=== PATIENT | female | born 1990 | race Caucasian/White ===

== ENCOUNTER 2016-10-30 11:22 | Emergency (ER) | payer OTHER ==
[~2016-10-30] VITALS: Ht 170.2 cm; Wt 102.9 kg
[~2016-10-30 11:22] MED LIST: SERTRALINE HCL50 MG PO
[2016-10-30 12:31] LABS: ADD MIUA? YES; BILIRUBIN NEGATIVE; BLOOD SMALL; COLOR YELLOW ((YELLOW)); GLUCOSE (STRIP) NEGATIVE; KETONES NEGATIVE; LEUKOCYTES NEGATIVE; NITRITE NEGATIVE; PROTEIN (STRIP) 30; SPECIFIC GRAVITY 1.028 (1.000-1.030); UROBILINOGEN 0.2 MG/DL (0.2-1.0)
[2016-10-30 12:36] LABS: BASOPHIL COUNT 0.1 K/uL (0-0.1); EOSINOPHIL (%) 0.8 % (0-5); EOSINOPHIL COUNT 0.1 K/uL (0-0.3); HEMATOCRIT 40.2 % (36.0-46.0); IMMATURE GRANULOCYTE (%) 0.3 % (0.0-0.7); INSTRUMENT ABS NEUTROPHIL CT 6.2 K/uL; LYMPHOCYTE COUNT 3.6 K/uL (1.0-2.8); MCH 28.6 PG (29.0-34.0); MCHC 32.3 G/DL (30.0-36.0); MCV 88.5 FL (83-99); MEAN PLAT.VOLUME 10.1 uM^3 (9.5-12.4); MONOCYTE (%) 5.7 % (3-12); MONOCYTE COUNT 0.6 K/uL (0-0.8); NEUTROPHIL (%) 58.4 % (45-76); NEUTROPHIL COUNT 6.2 K/uL (1.8-6.4); PLATELET COUNT 332 K/uL (156-360); RBC DIS.WIDTH-CV 12.9 % (11.8-14.6); RBC DIS.WIDTH-SD 41.9 % (39-53); RED BLOOD COUNT 4.54 M/uL (3.80-5.20); WHITE BLOOD COUNT 10.6 K/uL (4.1-10.2)
[2016-10-30 12:36] LABS: BACTERIA RARE /HPF; EPITHELIAL CELLS RARE /HPF; MUCUS 1+ /LPF; RED BLOOD CELLS 0-5 /HPF (0-5); WHITE BLOOD CELLS 0-5 /HPF (0-5)
[2016-10-30 12:49] LABS: CHLORIDE 107 mEq/L (99-109); POTASSIUM 3.9 mEq/L (3.7-5.4); SODIUM 139 mEq/L (136-147)
[2016-10-30 12:51] LABS: GLUCOSE 74 mg/dL (70-99)
[2016-10-30 12:53] LABS: ANION GAP 9 MEQ/L (2-14); TOTAL BILIRUBIN 0.5 mg/dL (0.0-1.0)
[2016-10-30 12:55] LABS: ALKALINE PHOSPHATASE 76 IU/L (3-129); GFR ESTIMATE (CALCULATED) > 59 mL/min/
[2016-10-30 12:56] LABS: UREA NITROGEN (BUN) 13 mg/dL (9-23)
[2016-10-30 12:58] LABS: LIPASE 16 U/L (1.0-51.0)
[2016-10-30 13:06] LABS: QUANTITATIVE HCG < 4.0 MIU/ML
[2016-10-30] MEDS ORDERED: NEXIUM40 MG PO (13:28)
[2016-10-30 13:36] VITALS: BP 148/69
== END 2016-10-30 13:46 | disposition home or self-care (01) ==
LOC: EME 11:22
PROVIDERS: Nurse Practitioner Family
DX: K92.1 Melena (principal); R31.9 Hematuria, unspecified
CPT/HCPCS: 80053; 81003; 83690; 84702; 85025; 99281; 99284

== ENCOUNTER 2017-03-18 20:02 | Emergency (ER) | payer OTHER ==
[~2017-03-18] VITALS: Ht 170.2 cm; Wt 103.1 kg
[~2017-03-18 20:02] MED LIST changes: +NEXIUM40 MG PO
[2017-03-18 20:38] LABS: HEMATOCRIT 36.5 % (36.0-46.0); MCH 30.1 PG (29.0-34.0); MCHC 34.2 G/DL (30.0-36.0); MEAN PLAT.VOLUME 10.4 uM^3 (9.5-12.4); PLATELET COUNT 330 K/uL (156-360); RBC DIS.WIDTH-CV 12.7 % (11.8-14.6); RBC DIS.WIDTH-SD 40.9 % (39-53); RED BLOOD COUNT 4.15 M/uL (3.80-5.20); WHITE BLOOD COUNT 11.1 K/uL (4.1-10.2)
[2017-03-18 21:16] LABS: ADD MIUA? YES; BILIRUBIN NEGATIVE; BLOOD LARGE; COLOR YELLOW ((YELLOW)); GLUCOSE (STRIP) NEGATIVE; KETONES NEGATIVE; LEUKOCYTES TRACE; NITRITE NEGATIVE; PROTEIN (STRIP) NEGATIVE; SPECIFIC GRAVITY 1.008 (1.000-1.030); UROBILINOGEN 0.2 MG/DL (0.2-1.0)
[2017-03-18 21:19] LABS: BACTERIA RARE /HPF; EPITHELIAL CELLS 1+ /HPF; MUCUS TRACE /LPF; RED BLOOD CELLS 30-40 /HPF (0-5); UCUL ADDED? NO; WHITE BLOOD CELLS 0-5 /HPF (0-5)
[2017-03-18 23:10] VITALS: BP 134/78
== END 2017-03-18 23:11 | disposition home or self-care (01) ==
LOC: EME 20:02 → EXP 20:02
DX: O20.9 Hemorrhage in early pregnancy, unspecified (principal); O30.041 Twin pregnancy, dichorionic/diamniotic, first trimester; Z3A.12 12 weeks gestation of pregnancy
CPT/HCPCS: 76801; 76802; 81003; 84702; 85027; 86900; 86901; 99281; 99283